=== PATIENT | female | born 1990 | race Caucasian/White ===

== ENCOUNTER 2019-03-18 14:10 | Emergency (ER) | payer SELFPAY ==
[~2019-03-18] VITALS: Ht 160 cm; Wt 93.0 kg
[2019-03-18 14:16] VITALS: BP 130/80
[2019-03-18 14:44] LABS: BASOPHILS # (AUTO) 0.03 x10^3/uL (0-0.1); BASOPHILS % (AUTO) 1 % (0-1); EOSINOPHILS # (AUTO) 0.06 x10^3/uL (0-0.4); EOSINOPHILS % (AUTO) 1 % (1-7); LYMPHOCYTES # (AUTO) 1.78 x10^3/uL (1-3.4); LYMPHOCYTES % (AUTO) 38 % (22-44); MD NO; MEAN CORPUSCULAR HEMOGLOBIN 30.7 pg (27.0-34.8); MEAN CORPUSCULAR HGB CONC 34.1 g/dL (32.4-35.8); MEAN PLATELET VOLUME 8.4 fL (7.4-10.4); MONOCYTES # (AUTO) 0.67 x10^3/uL (0.2-0.8); MONOCYTES % (AUTO) 14 % (2-9); NEUTROPHILS # (AUTO) 2.12 x10^3/uL (1.8-6.8); NEUTROPHILS % (AUTO) 46 % (42-75); PLATELET COUNT 248 x10^3/uL (130-400); RED BLOOD COUNT 4.78 x10^6/uL (3.82-5.3); RED CELL DISTRIBUTION WIDTH 13.1 % (9.6-15.2)
[2019-03-18 14:54] LABS: ALANINE AMINOTRANSFERASE 51 U/L (12-78); ALBUMIN 3.6 g/dL (3.4-5.0); ANION GAP 6 mmol/L (5-15); CALCIUM 8.7 mg/dL (8.5-10.1); CHLORIDE 105 mmol/L (98-107); CREATININE 0.82 mg/dL (0.55-1.02)
[2019-03-18 14:59] LABS: ALKALINE PHOSPHATASE 112 U/L (45-117); BILIRUBIN,TOTAL 0.5 mg/dL (0.2-1.0); TOTAL PROTEIN 7.9 g/dL (6.4-8.2)
[2019-03-18 17:03] LABS: CULTURE INDICATED? YES; MICROSCOPIC INDICATED
--- NOTE | 2019-03-18 17:07 | NUR ---
NA X 1
--- NOTE | 2019-03-18 17:26 | NUR ---
NA X 2
--- NOTE | 2019-03-18 17:34 | NUR ---
NA X 3
--- NOTE | 2019-03-18 20:20 | NUR ---
PATIENT SIGNED AMA FORM. NOT IN THE LOBBY.
== END 2019-03-18 20:22 | disposition left against medical advice (07) ==
LOC: ED 19:45
DX: M54.5 Low back pain (principal); R35.0 Frequency of micturition; R11.0 Nausea; R10.816 Epigastric abdominal tenderness
CPT/HCPCS: 36415; 80053; 81001; 83690; 84703; 85025; 87086; 99283